=== PATIENT | male | born 1970 | race Asian ===

== ENCOUNTER 2016-09-19 19:17 | Emergency (ER) | payer OTHER, BC ==
[2016-09-19 19:30] VITALS: BP 123/89
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
--- NOTE | 2016-09-20 07:05 | CR ---
Right knee: Four views of the right knee were obtained. Comparison: No previous study. Medial and lateral joint spaces are maintained in height. No joint effusion is seen. No fracture, dislocation or other bony abnormality is seen. Impression: 1. No abnormality is identified on right knee exam. Diagnostic code #1
== END 2016-09-19 20:51 | disposition home or self-care (01) ==
LOC: JD.ED 19:17
DX: S80.211A Abrasion, right knee, initial encounter (principal); V20.4XXA Motorcycle driver injured in collision with pedestrian or animal in traffic accident, initial encounter; Y92.488 Other paved roadways as the place of occurrence of the external cause; E78.00 Pure hypercholesterolemia, unspecified; Z79.899 Other long term (current) drug therapy; Z88.6 Allergy status to analgesic agent
CPT/HCPCS: 73564-26-RT; 73564-RT; 99282; 99284